=== PATIENT | female | born 1995 | race Caucasian/White ===

== ENCOUNTER 2020-10-01 16:29 | Emergency (ER) | payer OTHER ==
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
== END 2020-10-01 18:47 | disposition home or self-care (01) ==
LOC: ER 16:29
DX: M54.2 Cervicalgia (principal); F17.210 Nicotine dependence, cigarettes, uncomplicated; V49.49XA Driver injured in collision with other motor vehicles in traffic accident, initial encounter
CPT/HCPCS: 70450; 72125; 99284

== ENCOUNTER 2021-12-22 09:00 | Emergency (ER) | payer SELFPAY ==
[2021-12-22] MEDS ORDERED: IBUPROFEN 400 MG TAB ONE (09:23)
[2021-12-22] MEDS ORDERED: LORAZEPAM 0.5 MG TABLET ONE (09:25)
--- NOTE | 2021-12-22 09:48 | RAD REPORT ---
EXAM DESCRIPTION: RAD - Chest Single View - 12/22/2021 9:43 am CLINICAL HISTORY: CONGESTION COMPARISON: None TECHNIQUE: AP portable chest image was obtained 12/22/2021 9:43 am . FINDINGS: Lungs are clear. Heart and vasculature are normal. No measurable pleural effusion and no p neumothorax. No acute bony abnormality seen. No acute aortic findings suspected. IMPRESSION: No acute cardiopulmonary process.
--- NOTE | 2021-12-22 12:32 | EDPHYS ---
Physician Documentation [facility] Name: Sandi Quiñones Age: 26 yrs Sex: Female : 1995 Arrival Date: 12/22/2021 Time: 09:01 Bed 14 Private MD: ED Physician Jessa Albert HPI: 12/22 09:16 This 26 yrs old Female presents to ER via Unassigned with complaints of Numbness Of ma2 Arm, Chest Pain, Lightheaded. 09:16 Associated signs and symptoms: Pertinent negatives: fever, pain, tingling. 26-year-old ma2 female with chest pain worse with breathing, constant unchanged. Never had heart issues before,. 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 - Social history:: Smoking status: Patient reports the use of cigarette tobacco products, denies chronic smoking, but will smoke occasionally. - Family history:: not pertinent. ROS: 09:16 Constitutional: Negative for fever, chills, and weight loss. ma2 09:16 All other systems are negative. Exam: 09:16 Constitutional: This is a well developed, well nourished patient who is awake, alert, ma2 and in no acute distress. Head/Face: Normocephalic, atraumatic. Eyes: Pupils equal round and reactive to light, extra-ocular motions intact. Lids and lashes normal. Conjunctiva and sclera are non-icteric and not injected. Cornea within normal limits. Periorbital areas with no swelling, redness, or edema. ENT: Nares patent. No nasal discharge, no septal abnormalities noted. Tympanic membranes are normal and external auditory canals are clear. Oropharynx with no redness, swelling, or masses, exudates, or evidence of obstruction, uvula midline. Mucous membranes moist. Neck: Trachea midline, no thyromegaly or masses palpated, and no cervical lymphadenopathy. Supple, full range of motion without nuchal rigidity, or vertebral point tenderness. No Meningismus. Chest/axilla: Normal chest wall appearance and motion. Nontender with no deformity. No lesions are appreciated. Cardiovascular: Regular rate and rhythm with a normal S1 and S2. No gallops, murmurs, or rubs. Normal PMI, no JVD. No pulse deficits. Respiratory: Lungs have equal breath sounds bilaterally, clear to auscultation and percussion. No rales, rhonchi or wheezes noted. No increased work of breathing, no retractions or nasal flaring. Abdomen/GI: Soft, non-tender, with normal bowel sounds. No distension or tympany. No guarding or rebound. No evidence of tenderness throughout. Back: No spinal tenderness. No costovertebral tenderness. Full range of motion. Skin: Warm, dry with normal turgor. Normal color with no rashes, no lesions, and no evidence of cellulitis. MS/ Extremity: Pulses equal, no cyanosis. Neurovascular intact. Full, normal range of motion. Neuro: Awake and alert, GCS 15, oriented to person, place, time, and situation. Cranial nerves II-XII grossly intact. Motor strength 5/5 in all extremities. Sensory grossly intact. Cerebellar exam normal. Normal gait. Vital Signs: 09:18 BP 114 / 76; Pulse 50; Resp 17; Temp 98.2; Pulse Ox 99% ; Weight 92.99 kg; Height 5 ft. ap3 4 in. (162.56 cm); 09:18 Body Mass Index 35.19 (92.99 kg, 162.56 cm) ap3 MDM: 09:04 Patient medically screened. [facility] 09:16 Differential diagnosis: 26-year-old healthy with pleuritic chest pain constant for 2 ma2 days, patient has anxiety, severely anxious on exam, vital signs within normal limits including SPO2 of 100, lung sounds great, no signs of DVT on exam, chest pain improved with pain medication and Ativan, EKG unremarkable. 12:29 Data reviewed: vital signs, nurses notes. Counseling: I had a detailed discussion with ma the patient and/or guardian regarding: the historical points, exam findings, and any diagnostic results supporting the discharge/admit diagnosis, the presence of at least one elevated blood pressure reading (>120/80) during this emergency department visit, the need for outpatient follow up. Response to treatment: the patient's symptoms have resolved after treatment. 12/22 09:19 Order name: Chest Single View XRAY ma2 12/22 11:36 Order name: EKG Electrocardiogram; Complete Time: 12:24 EDWY 12/22 09:05 Order name: EKG - Nurse/Tech; Complete Time: 09:25 ma2 Administered Medications: 09:24 Drug: Motrin (ibuprofen) 800 mg Route: PO; cb5 09:25 Drug: Ativan (LORazepam) 2 mg Route: PO; cb5 Disposition Summary: 12/22/21 12:31 Discharge Ordered Location: Home ma2 Condition: Stable ma2 Diagnosis - Chest pain, unspecified ma2 Followup: ma2 - With: Private Physician - When: Tomorrow - Reason: Wound Recheck, If symptoms return Discharge Instructions: - Discharge Summary Sheet ma2 - Nonspecific Chest Pain, Adult, [id number] ga2 Forms: - Medication Reconciliation Form ma2 - School release form bd - Work release form bd - Thank You Letter ma2 - Antibiotic Education ma2 - Prescription Opioid Use ma2 Prescriptions: - ketorolac 10 mg Oral tablet - take 1 tablet by ORAL route every 4 hours not to exceed 40mg in 24hrs for up to ma2 5 days total use; 20 tablet; Refills: 0, Product Selection Permitted Signatures: Dispatcher [employer] [facility] Jessa Albert MD MD ma2 Rina Santiago RN RN ap3 Machelle Galvan RN RN cb5
--- NOTE | 2021-12-22 12:32 | ER ---
Nurse's Notes [facility] Name: Sandi Quiñones Age: 26 yrs Sex: Female : 1995 Arrival Date: 12/22/2021 Time: 09:01 Bed 14 Private MD: Diagnosis: Chest pain, unspecified Presentation: 12/22 09:18 Chief complaint: Patient states: she started having sharp chest pain approx one hour ap3 prior to her arrival to the ED. Patient states she has never had this feeling before. Coronavirus screen: At this time, the client does not indicate any symptoms associated with coronavirus-19. Ebola Screen: No symptoms or risks identified at this time. Initial Sepsis Screen: Does the patient meet any 2 criteria? No. Patient's initial sepsis screen is negative. Does the patient have a suspected source of infection? No. Patient's initial sepsis screen is negative. Risk Assessment: Do you want to hurt yourself or someone else? Patient reports no desire to harm self or others. Onset of symptoms was December 22, 2021. 09:18 Method Of Arrival: Wheelchair ap3 09:18 Acuity: DEMOND 3 ap3 Triage Assessment: 09:20 General: Appears uncomfortable, Behavior is calm, cooperative. Pain: Complains of pain ap3 in anterior aspect of left upper chest Pain began suddenly, 1 hour ago. Neuro: Level of Consciousness is awake, alert, obeys commands, Oriented to person, place, time, situation, Speech is normal, Facial symmetry appears normal. Cardiovascular: Reports chest pain, Patient's skin is warm and dry. Respiratory: Airway is patent Respiratory effort is even, unlabored. 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 - Social history:: Smoking status: Patient reports the use of cigarette tobacco products, denies chronic smoking, but will smoke occasionally. - Family history:: not pertinent. Screenin:20 Abuse screen: Denies threats or abuse. Nutritional screening: No deficits noted. ap3 Tuberculosis screening: No symptoms or risk factors identified. Assessment: 09:20 General: Appears comfortable, obese, well groomed, Behavior is cooperative, anxious. cb5 Pain: Complains of pain in chest Pain does not radiate. Neuro: No deficits noted. Level of Consciousness is awake, alert, obeys commands, Oriented to person, place, time, situation, Appropriate for age. Cardiovascular: No deficits noted. Respiratory: No deficits noted. GI: No deficits noted. : No deficits noted. EENT: No deficits noted. Derm: No deficits noted. Musculoskeletal: No deficits noted. 10:15 General: pt states the ativan helped her. cb5 10:15 Reassessment: Patient and/or family updated on plan of care and expected duration. Pain cb5 level reassessed. Patient states feeling better. 11:15 Reassessment: Patient and/or family updated on plan of care and expected duration. Pain cb5 level reassessed. 12:15 Reassessment: Patient and/or family updated on plan of care and expected duration. Pain cb5 level reassessed. Vital Signs: 09:18 BP 114 / 76; Pulse 50; Resp 17; Temp 98.2; Pulse Ox 99% ; Weight 92.99 kg; Height 5 ft. ap3 4 in. (162.56 cm); 09:18 Body Mass Index 35.19 (92.99 kg, 162.56 cm) ap3 ED Course: 09:01 Patient arrived in ED. am2 09:04 Jessa Albert MD is Attending Physician. ma2 09:10 Machelle Galvan, RN is Primary Nurse. cb5 09:19 Triage completed. ap3 09:20 EKG done, by ED staff, reviewed by Jessa Albert MD. ap3 09:20 Arm band placed on right wrist. ap3 09:21 Patient maintains SpO2 saturation greater than 95% on room air. ap3 09:21 Patient has correct armband on for positive identification. Bed in low position. Call ap3 light in reach. Side rails up X2. Adult w/ patient. lunchroom monitor on. Pulse ox on. NIBP on. Door closed. Noise minimized. 09:43 Chest Single View XRAY In Process Unspecified. EDMS Administered Medications: 09:24 Drug: Motrin (ibuprofen) 800 mg Route: PO; cb5 09:25 Drug: Ativan (LORazepam) 2 mg Route: PO; cb5 Outcome: 12:31 Discharge ordered by . sudha 13:12 Patient left the ED. cb5 Signatures: Dispatcher [employer] EDRina Acosta Mohammad, MD MD ma2 Rina Santiago, RN RN ap3 Machelle Galvan RN RN cb5
[2021-12-22 14:14] VITALS: BP 114/76; TEMP 98.2; O2SAT 99
--- NOTE | 2021-12-23 07:36 | EKG ---
Test Date: 2021-12-22 Test Time: 09:12:01 Assistant Hvac Mechanic: ALP MEASUREMENT RESULTS: Intervals: Rate: 43 MT: 160 QRSD: 88 QT: 454 QTc: 383 [place]: P: 34 MT: 160 QRS: 85 T: 71 INTERPRETIVE STATEMENTS: Marked sinus bradycardia Abnormal ECG Compared to ECG 12/22/2021 09:11:25 Sinus arrhythmia no longer present Electronically Signed On 12-23-21 07:35:51 CARDIAC TECH by Alexandre Quevedo
--- NOTE | 2021-12-23 07:36 | EKG ---
Test Date: 2021-12-22 Test Time: 09:10:56 Manager Drilling: ALP MEASUREMENT RESULTS: Intervals: Rate: 51 TN: 170 QRSD: 86 QT: 446 QTc: 411 [place]: P: 47 TN: 170 QRS: 85 T: 74 INTERPRETIVE STATEMENTS: Sinus bradycardia with premature supraventricular complexes Otherwise normal ECG No previous ECG available for comparison Electronically Signed On 12-23-21 07:35:53 SOFTWARE SPECIALIST by Alexandre Quevedo
--- NOTE | 2021-12-23 07:36 | EKG ---
Test Date: 2021-12-22 Test Time: 09:11:25 Business Director: ALP MEASUREMENT RESULTS: Intervals: Rate: 58 WA: 166 QRSD: 88 QT: 448 QTc: 439 [place]: P: 48 WA: 166 QRS: 86 T: 73 INTERPRETIVE STATEMENTS: Sinus bradycardia with sinus arrhythmia Otherwise normal ECG Compared to ECG 12/22/2021 09:10:56 Atrial premature complex(es) no longer present Electronically Signed On 12-23-21 07:35:52 RAT FARMER by Alexandre Quevedo
== END 2021-12-22 13:12 | disposition home or self-care (01) ==
LOC: ER 09:00
DX: R07.9 Chest pain, unspecified (principal); F17.210 Nicotine dependence, cigarettes, uncomplicated
CPT/HCPCS: 71045; 93005; 99285

== ENCOUNTER 2024-02-20 08:18 | Emergency (ER) | payer SELFPAY ==
[2024-02-20] MEDS ORDERED: ONDANSETRON 4 MG/2 ML VIAL ONE (08:56)
[2024-02-20] MEDS ORDERED: KETOROLAC 30 MG/ML INJ ONE (08:56)
[2024-02-20 09:02] LABS: Specific Gravity 1.023 (1.005-1.030)
[2024-02-20 09:05] LABS: Specific Gravity 1.023 (1.005-1.030); Sqamous Epithelial 20-50 /HPF (None Seen); Urine Bacteria None Seen /HPF (<20); Urine Bilirubin NEGATIVE (Negative); Urine Blood Negative (Negative); Urine Clarity Extremely Turbid (Clear); Urine Color Yellow (Yellow); Urine Culture Reflex Order NOT NEEDED; Urine Glucose NEGATIVE (Negative); Urine Ketones 2+ (Negative); Urine Microscopic Reflex YN ORDER UMIC; Urine Mucus 4+ /HPF (None Seen); Urine Nitrite NEGATIVE (Negative); Urine Protein TRACE (Negative); Urine Urobilinogen Normal (Normal); Urine WBC <5 /HPF (<5); Urine Yeast (Budding) Trace /HPF (None Seen); Urine pH 5.5 (5.0-7.0)
[2024-02-20 09:14] LABS: Absolute Eosinophils 0.1 K/uL (0-0.5); Absolute Lymphocytes (CBC) 1.6 K/uL (0.7-4.9); Absolute Monocytes 0.8 K/uL (0.1-1.3); Absolute Neutrophil 5.6 K/uL (1.8-8.0); Basophils % 0.5 % (0-1.3); Eosinophils % 1.1 % (0-4.4); Hematocrit 41.8 % (36.0-45.0); Hemoglobin 13.4 g/dL (12.0-15.0); Lymphocytes % 20.2 % (15.3-44.8); MCH 28.9 pg (27.0-35.0); MCHC 32.1 g/dL (32.0-36.0); MCV 90.1 fL (80-100); MPV 8.4 fL (7.6-11.3); Monocytes % 9.6 % (3.3-12.3); Neutrophils % 68.6 % (41.7-73.7); Platelets 291 thou/uL (152-406); RBC Red Blood Cell Count 4.64 M/uL (3.86-4.86); Red Cell Distribution Width 13.8 % (12.1-15.2)
[2024-02-20 09:30] LABS: Albumin 3.5 g/dL (3.4-5.0); Albumin/Globulin Ratio 1.1 (1.1-1.8); Anion Gap 7.3 mEq/L (5.0-15.0); Bilirubin Total 0.4 mg/dL (0.2-1.0); Globulin 3.2 g/dL (2.3-3.5); Potassium 3.3 mEq/L (3.5-5.1); Protein, Total 6.7 g/dL (6.4-8.2)
--- NOTE | 2024-02-20 09:38 | RAD REPORT ---
EXAM DESCRIPTION: CT - Abdomen Pelvis Wo Contrast - 02/20/2024 9:21 am CLINICAL HISTORY: ABD PAIN COMPARISON: No comparisons TECHNIQUE: Thin cut axial CT imaging of the abdomen and pelvis was performed without IV contrast. Mu ltiplanar reformats were generated and reviewed. All CT scans are performed using dose optimization technique as appropriate and may include automated exposure control or mA/KV adjustment according to patient size. FINDINGS: No suspicious findings in the lung bases. The liver, spleen, adrenal glands, and pancreas show no suspicious findings. Gallbladder and biliary tree are also without suspicious finding. Symmetric renal contour, without suspicious parenchymal findings within limits of noncontrast techniq ue. No evidence of hydroureteronephrosis. Bilateral small nonobstructing calculi, largest measuring 5 mm at the left superior pole. No dilated bowel loops or bowel wall thickening. No free air, free fluid or inflammatory stranding. N o hernia, mass or bulky lymphadenopathy. The urinary bladder is decompressed, limiting evaluation. No suspicious bony findings. IMPRESSION: Bilateral nonobstructing renal calculi, up to 5 mm. No hydroureteronephrosis. No other a cute findings.
--- NOTE | 2024-02-20 10:47 | RAD REPORT ---
EXAM DESCRIPTION: RAD - Chest Pa And Lat (2 Views) - 02/20/2024 9:32 am CLINICAL HISTORY: CHEST PAIN COMPARISON: Chest Single View dated 12/22/2021 TECHNIQUE: PA and lateral views of the chest were obtained. FINDINGS: The lungs are clear. Heart size is normal and central vasculature is within normal limits. No pleural effusion or pneumothorax seen. No acute bony finding noted. IMPRESSION: No acute cardiopulmonary process.
--- NOTE | 2024-02-20 11:32 | EDPHYS ---
Physician Documentation [facility] Name: Sandi Quiñones Age: 28 yrs Sex: Female : 1995 Arrival Date: 02/20/2024 Time: 08:18 Bed 17 Private MD: ED Physician Shelton Castro HPI: 02/19 09:16 This 28 yrs old Female presents to ER via Ambulatory with complaints of Low Back Pain, ms3 Chest Pain. 09:16 28-year-old female with past medical history of kidney stones presents to the emergency ms3 department for chest pain that began yesterday. Patient states at 2 AM she developed lower back pain. Patient states her pain in her chest and back is rated a 7/10. Patient denies fevers or chills. Patient endorses shortness of breath, nausea, vomiting, chills. 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 Flu vaccine is not up to date. - Infectious Disease History:: Denies. - Social history:: Smoking status: Patient reports the use of cigarette tobacco products, denies chronic smoking, but will smoke occasionally, Patient uses alcohol, occasionally. ROS: 09:16 Constitutional: Negative for fever, and chills. Neck: Negative for injury, pain, and ms3 swelling, Cardiovascular: Negative for chest pain, and palpitations. Respiratory: Negative for shortness of breath, cough, wheezing, and pleuritic chest pain, Abdomen/GI: Negative for abdominal pain, nausea, vomiting, diarrhea, and constipation, 09:16 Back: Positive for Back pain, Exam: 09:16 Constitutional: This is a well developed, well nourished patient who is awake, alert, ms3 and in no acute distress. Head/Face: Normocephalic, atraumatic. Neck: Trachea midline, no cervical lymphadenopathy. Supple, full range of motion without nuchal rigidity, or vertebral point tenderness. No Meningismus. Chest/axilla: Normal chest wall appearance and motion. Nontender with no deformity. Cardiovascular: Regular rate and rhythm with a normal S1 and S2. No gallops, murmurs, or rubs. Normal PMI, no JVD. No pulse deficits. Respiratory: Lungs have equal breath sounds bilaterally, clear to auscultation and percussion. No rales, rhonchi or wheezes noted. No increased work of breathing, no retractions or nasal flaring. Abdomen/GI: Soft, non-tender, with normal bowel sounds. No distension or tympany. No guarding or rebound. No evidence of tenderness throughout. Skin: Warm, dry with normal turgor. Normal color with no rashes, no lesions, and no evidence of cellulitis. 09:16 ECG was reviewed by the Attending Physician. Vital Signs: 08:28 Pulse 82; Resp 18; Pulse Ox 100% ; Weight 89.81 kg; Height 5 ft. 5 in. ; Pain 7/10; ap3 08:28 BP 139 / 86; ap3 09:14 BP 134 / 56; Pulse 70; Resp 16; Pulse Ox 100% ; ko1 11:05 BP 108 / 58; Pulse 74; Resp 18; Pulse Ox 100% on R/A; mb9 08:28 Body Mass Index 32.95 (89.81 kg, 165.1 cm) ap3 08:28 Pain Scale: Adult ap3 MDM: 08:47 Patient medically screened. ms3 14:38 Differential diagnosis: strain, sciatica, UTI, Nephrolithiasis. Data reviewed: vital ms3 signs, nurses notes, lab test result(s), radiologic studies, and as a result, I will discharge patient. I considered the following discharge prescriptions or medication management in the emergency department Medications were administered in the Emergency Department. See MAR. Care significantly affected by the following chronic conditions: Kidney stones. Counseling: I had a detailed discussion with the patient and/or guardian regarding the historical points, exam findings, and any diagnostic results supporting the discharge/admit diagnosis, lab results, radiology results, the need for outpatient follow up, to return to the emergency department if symptoms worsen or persist or if there are any questions or concerns that arise at home. Response to treatment: the patient's symptoms have markedly improved after treatment, and as a result, I will discharge patient. Special discussion: I discussed with the patient/guardian in detail that at this point there is no indication for admission to the hospital. It is understood, however, that if the symptoms persist or worsen the patient needs to return immediately for re-evaluation. ED course: Discussed labs and imaging with patient. Patient to follow-up with primary care physician in 2 to 3 days. Patient understands and agrees with plan. All questions were answered. Return precautions discussed include worsening symptoms, or any other concerns. On reevaluation patient symptoms improved, patient is alert and oriented x 4, no apparent distress, nontoxic-appearing, ambulatory in the emergency department. 02/19 08:38 Order name: CBC with Diff; Complete Time: 10:02 ms3 02/19 08:38 Order name: CMP; Complete Time: 10:02 ms3 02/19 08:38 Order name: Test, Urine; Complete Time: 10:02 ms3 02/19 08:38 Order name: Urinalysis w/ reflexes; Complete Time: 10:02 ms3 02/19 08:38 Order name: CT Abd/Pelvis - Without Contrast; Complete Time: 10:02 ms3 02/19 08:38 Order name: Chest Pa And Lat (2 Views) XRAY; Complete Time: 11:15 ms3 02/19 08:30 Order name: EKG; Complete Time: 08:30 hb 02/19 08:30 Order name: EKG - Nurse/Tech; Complete Time: 08:30 hb 02/19 08:38 Order name: IV Saline Lock; Complete Time: 09:08 ms3 02/19 08:38 Order name: Labs collected and sent; Complete Time: 09:08 ms3 EC:16 Rate is 66 beats/min. Rhythm is regular. QRS [place] is Normal. [place] interval is normal. QRS ms3 interval is normal. QT interval is normal. Clinical impression: Normal ECG. Interpreted by me. Reviewed by me. Administered Medications: 09:08 Drug: TORadol - Ketorolac IVP 15 mg IVP once Route: IVP; Site: left antecubital; ko1 09:23 Follow up: Response: No adverse reaction ko1 09:08 Drug: Ondansetron IVP 4 mg IVP once; over 2 minutes Route: IVP; Site: left antecubital; ko1 09:23 Follow up: Response: No adverse reaction ko1 11:48 Drug: Potassium Chloride PO Liquid 40 mEq PO once Route: PO; mb9 Disposition Summary: 02/20/24 11:32 Discharge Ordered Notes: Location: Home ms3 Condition: Stable ms3 Diagnosis - Chest pain, unspecified ms3 - Cough ms3 - Low back pain ms3 - Hypokalemia ms3 Discharge Instructions: - Acute Back Pain, Adult ms3 - Nonspecific Chest Pain, Adult ms3 - Cough, Adult ms3 - Hypokalemia ms3 - Discharge Summary Sheet mb9 Forms: - Medication Reconciliation Form ms3 - Antibiotic Education ms3 - Prescription Opioid Use ms3 - Patient Portal Instructions ms3 - Leadership Thank You Letter ms3 - Work release form mb9 Prescriptions: - Tessalon Perles 100 mg Oral Capsule - take 1 capsule ORAL route every 8 hours As needed; 15 capsule; Refills: 0, ms3 Product Selection Permitted Signatures: Dispatcher [employer] EDLindsey Chong RN RN Rina Santiago RN RN ap3 Shelton Castro DO DO ms3 Jojo Bermeo RN RN ko1 Nolberto, Shyla Vyas RN RN mb9 Corrections: (The following items were deleted from the chart) 08:39 08:39 Abdomen Pelvis Wo Con+CT.RAD.BRZ ordered. EDMS EDMS 08:39 08:39 Chest Pa And Lat (2 Views)+RAD.RAD.BRZ ordered. EDMS EDMS
--- NOTE | 2024-02-20 11:32 | ER ---
Nurse's Notes [facility] Name: Sandi Quiñones Age: 28 yrs Sex: Female : 1995 Arrival Date: 02/20/2024 Time: 08:18 Bed 17 Private MD: Diagnosis: Chest pain, unspecified;Cough;Low back pain;Hypokalemia Presentation: 02/19 08:23 Chief complaint: Patient states: she feels like she has a "pinching in her chest" ap3 causing a shortness of breath since yesterday and a low back pain in her kidney since approx 0200 this morning. Patient reports nausea with the pain, and is currently stating her pain to be a 7/10 on the pain scale. Coronavirus screen: At this time, the client does not indicate any symptoms associated with coronavirus-19. Ebola Screen: No symptoms or risks identified at this time. Risk Assessment: Do you want to hurt yourself or someone else? Patient reports no desire to harm self or others. Onset of symptoms was February 19, 2024. 08:23 Method Of Arrival: Ambulatory ap3 08:30 Initial Sepsis Screen: Does the patient meet any 2 criteria? No. Patient's initial ap3 sepsis screen is negative. Does the patient have a suspected source of infection? No. Patient's initial sepsis screen is negative. 08:30 Acuity: DEMOND 2 ap3 Triage Assessment: 08:26 General: Appears in no apparent distress. Behavior is calm, cooperative, appropriate ap3 for age. Pain: Complains of pain in right low back and chest Pain currently is 7 out of 10 on a pain scale. Neuro: Level of Consciousness is awake, alert, obeys commands, Oriented to person, place, time, situation. Cardiovascular: Reports chest pain. Respiratory: Airway is patent Respiratory effort is even, unlabored, Respiratory pattern is regular, symmetrical. 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 Flu vaccine is not up to date. - Infectious Disease History:: Denies. - Social history:: Smoking status: Patient reports the use of cigarette tobacco products, denies chronic smoking, but will smoke occasionally, Patient uses alcohol, occasionally. Screenin:26 Abuse screen: Denies threats or abuse. Nutritional screening: No deficits noted. ap3 Tuberculosis screening: No symptoms or risk factors identified. 09:12 [facility] ED Fall Risk Assessment (Adult) History of falling in the last 3 months, ko1 including since admission No falls in past 3 months (0 pts) Confusion or Disorientation No (0 pts) Intoxicated or Sedated No (0 pts) Impaired Gait No (0 pts) Mobility Assist Device Used No (0 pt) Altered Elimination No (0 pt) Score/Fall Risk Level 0 - 2 = Low Risk Oriented to surroundings, Maintained a safe environment, Educated pt \\T\\ family on fall prevention, incl call for assistance when getting out of bed, Assessed \\T\\ reinforced patient's understanding of fall precautions, Provided non-skid footwear, Hourly rounding (assess needs \\T\\ fall precautionary measures) done, Used ambulatory aids as needed (educated on \\T\\ assisted with), Used gait belt as appropriate. Assessment: 08:27 Pain: Pain does not radiate. Pain began gradually, 1 day ago. ap3 10:35 Reassessment: No changes from previously documented assessment. Patient and/or family mb9 updated on plan of care and expected duration. Pain level reassessed. Patient is alert, oriented x 3, equal unlabored respirations, skin warm/dry/pink. 11:51 Reassessment: Patient appears in no apparent distress at this time. No changes from mb9 previously documented assessment. Patient and/or family updated on plan of care and expected duration. Pain level reassessed. Patient is alert, oriented x 3, equal unlabored respirations, skin warm/dry/pink. Vital Signs: 08:28 Pulse 82; Resp 18; Pulse Ox 100% ; Weight 89.81 kg; Height 5 ft. 5 in. ; Pain 7/10; ap3 08:28 BP 139 / 86; ap3 09:14 BP 134 / 56; Pulse 70; Resp 16; Pulse Ox 100% ; ko1 11:05 BP 108 / 58; Pulse 74; Resp 18; Pulse Ox 100% on R/A; mb9 08:28 Body Mass Index 32.95 (89.81 kg, 165.1 cm) ap3 08:28 Pain Scale: Adult ap3 ED Course: 08:20 Patient arrived in ED. im 08:26 Arm band placed on left wrist. ap3 08:26 O2 via room air. ap3 08:28 Shelton Castro DO is Attending Physician. ms3 08:30 EKG done, by ED staff, reviewed by Shelton Castro DO. hb 08:31 Triage completed. ap3 08:45 Assisted to bathroom. ko1 08:45 No provider procedures requiring assistance completed. Initial lab(s) drawn, by fl, ko1 sent to lab. Urine collected: clean catch specimen, darci colored. Inserted saline lock: 22 gauge in left antecubital area, using aseptic technique. Blood collected. 08:47 Jojo Bermeo, EMILY is Primary Nurse. ko1 08:50 Urinalysis w/ reflexes Sent. ko1 08:50 Test, Urine Sent. ko1 09:08 CBC with Diff Sent. ko1 09:08 CMP Sent. ko1 09:12 Patient has correct armband on for positive identification. Bed in low position. Call ko1 light in reach. Side rails up X 1. Provided Education on: labs/meds. Pulse ox on. NIBP on. Door closed. Noise minimized. Lights dimmed. Warm blanket given. 09:23 CT Abd/Pelvis - Without Contrast In Process Unspecified. EDMS 09:34 Chest Pa And Lat (2 Views) XRAY In Process Unspecified. EDMS 10:04 Report given to Stacie Todd RN. ko1 11:51 IV discontinued, intact, bleeding controlled, No redness/swelling at site. Pressure mb9 dressing applied. Administered Medications: 09:08 Drug: TORadol - Ketorolac IVP 15 mg IVP once Route: IVP; Site: left antecubital; ko1 09:23 Follow up: Response: No adverse reaction ko1 09:08 Drug: Ondansetron IVP 4 mg IVP once; over 2 minutes Route: IVP; Site: left antecubital; ko1 09:23 Follow up: Response: No adverse reaction ko1 11:48 Drug: Potassium Chloride PO Liquid 40 mEq PO once Route: PO; mb9 Medication: 08:27 VIS not applicable for this client. ap3 Outcome: 11:32 Discharge ordered by . ms3 11:51 Discharged to home ambulatory, with family, mb9 11:51 Condition: stable 11:51 Discharge instructions given to patient, Instructed on discharge instructions, follow up and referral plans. Demonstrated understanding of instructions, follow-up care, medications, Prescriptions given X 1, 11:52 Patient left the ED. mb9 Signatures: Dispatcher [employer] EDMS Lindsey Lemus, RN RN Rina Bhat RN RN ap3 Shelton Castro DO DO ms3 Jojo Bermeo RN RN ko1 Shyla Arvizu RN RN mb9 Zeinab Escalera Corrections: (The following items were deleted from the chart) 11:07 11:05 BP 106 / 57; Pulse 74bpm; Resp 18bpm; Pulse Ox 100% RA; mb9 mb9
[2024-02-20] MEDS ORDERED: POTASSIUM CL SA 10 MEQ TAB PO ONE (11:47)
[2024-02-20 12:22] VITALS: BP 108/58; O2SAT 100
== END 2024-02-20 11:52 | disposition home or self-care (01) ==
LOC: ER 08:18
DX: R07.9 Chest pain, unspecified (principal); R05.9 Cough, unspecified; M54.50 Low back pain, unspecified; E87.6 Hypokalemia
CPT/HCPCS: 36415; 71046; 74176; 80053; 81001; 81025; 85025; 93005; J2405

== ENCOUNTER 2024-08-11 23:07 | Emergency (ER) | payer BC, SELFPAY ==
[2024-08-11] MEDS ORDERED: PROMETHAZINE INJ 25 MG/ML AMP ONE (23:53)
[2024-08-11] MEDS ORDERED: MORPHINE 4 MG/ML SYR ONE (23:53)
[2024-08-11] MEDS ORDERED: NA CHLORIDE 0.9% 1,000 ML ONE (23:54)
[2024-08-11 23:59] LABS: Absolute Basophils 0.1 K/uL (0-0.5); Absolute Eosinophils 0.1 K/uL (0-0.5); Absolute Lymphocytes (CBC) 3.6 K/uL (0.7-4.9); Absolute Monocytes 0.9 K/uL (0.1-1.3); Absolute Neutrophil 6.2 K/uL (1.8-8.0); Basophils % 0.5 % (0-1.3); Eosinophils % 1.3 % (0-4.4); Hematocrit 38.5 % (36.0-45.0); Hemoglobin 12.8 g/dL (12.0-15.0); Lymphocytes % 33.2 % (15.3-44.8); MCH 29.9 pg (27.0-35.0); MCHC 33.2 g/dL (32.0-36.0); Monocytes % 8.2 % (3.3-12.3); Neutrophils % 56.8 % (41.7-73.7); Platelets 278 thou/uL (152-406); RBC Red Blood Cell Count 4.28 M/uL (3.86-4.86); Red Cell Distribution Width 13.7 % (12.1-15.2)
[2024-08-12 00:21] LABS: Albumin 3.6 g/dL (3.4-5.0); Albumin/Globulin Ratio 1.2 (1.1-1.8); Anion Gap 5.2 mEq/L (5.0-15.0); Bilirubin Total 0.2 mg/dL (0.2-1.0); Globulin 2.9 g/dL (2.3-3.5); Potassium 3.2 mEq/L (3.5-5.1); Protein, Total 6.5 g/dL (6.4-8.2)
[2024-08-12 01:09] LABS: Specific Gravity 1.029 (1.005-1.030)
[2024-08-12 01:12] LABS: Calcium Oxalate Crystals- Ur Few /HPF (None Seen); Specific Gravity 1.029 (1.005-1.030); Urine Bacteria None Seen /HPF (<20); Urine Bilirubin NEGATIVE (Negative); Urine Blood Negative (Negative); Urine Clarity Turbid (Clear); Urine Color Yellow (Yellow); Urine Culture Reflex Order NOT NEEDED; Urine Glucose NEGATIVE (Negative); Urine Ketones NEGATIVE (Negative); Urine Microscopic Reflex YN ORDER UMIC; Urine Mucus 4+ /HPF (None Seen); Urine Nitrite NEGATIVE (Negative); Urine Protein TRACE (Negative); Urine RBC <5 /HPF (None Seen); Urine Urobilinogen 1+ (Normal); Urine WBC <5 /HPF (<5)
--- NOTE | 2024-08-12 02:08 | RAD REPORT ---
CLINICAL HISTORY: Flank pain. COMPARISON: CT Abdomen Pelvis 02/20/2024. TECHNIQUE: CT ABDOMEN PELVIS WITH IV CONTRAST on 08/11/2024 11:34 PM CDT This exam was performed according to our departmental dose-optimization program, which includes autom ated exposure control, adjustment of the mA and/or kV according to patient size and/or use of iterative reconstruction technique. FINDINGS: Lower lungs are clear. Abdomen: The liver is normal in appearance. There is no biliary dilatation. Gallbladder is normal in appearance. The pancreas and spleen are normal in appearance. Adrenal glands are normal. There are multiple scattered bilateral renal calculi measuring 1 to 2 mm. There is no hydronephrosis. Abdominal aorta is normal in course and caliber without aneurysm. There is no free air. There is no r etroperitoneal adenopathy. Pelvis: There is no bowel obstruction. Urinary bladder is unremarkable. There is no free fluid. Uteru s is normal in size. Left ovarian cyst measures 4.9 cm. Appendix is normal. Skeleton: There are no acute osseous findings. No suspicious bony lesions. IMPRESSION: Bilateral nephrolithiasis without hydronephrosis. Left ovarian simple-appearing cyst measuring 4.9 cm. No follow-up imaging is recommended. Reference: JACR 2019;17(2):[id number] Electronically signed by: Jackson Elizabeth MD 08/12/2024 02:04 AM CDT Due to temporary technical issues with the [email or web address] reporting system, reports are being errol d by the in-house radiologist without review as a courtesy to ensure prompt reporting the interpreting radiologist is fully responsible for the content of the report. Transcribed Date/Time: 08/12/2024 2:08 AM
--- NOTE | 2024-08-12 02:21 | EDPHYS ---
Physician Documentation [facility] Name: Sandi Quiñones Age: 28 yrs Sex: Female : 1995 Arrival Date: 08/11/2024 Time: 23:07 Bed 17 Private MD: CHAY Physician Humphrey Kim HPI: 08/12 00:08 This 28 yrs old Female presents to ER via Wheelchair with complaints of Flank pain. sb4 00:08 The patient complains of pain in the left low back. The pain radiates to the left lower sb4 quadrant. Onset: The symptoms/episode began/occurred 2 hour(s) ago. Modifying factors: The symptoms are alleviated by nothing. the symptoms are aggravated by nothing. Associated signs and symptoms: Pertinent positives: pain radiating to left lower extremity, Pertinent negatives: dysuria, fever, urinary frequency. Severity of pain: in the emergency department the pain is a 9 / 10. The patient has experienced a previous episode, approximately 10 months ago, . Patient reports left flank pain that radiates on her leg that began just prior to arrival. She states that she had similar symptoms last year and had to be transferred to [facility] and was diagnosed with several kidney stones and kidney abscesses. States that she has not been able to follow-up with nephrology since. Denies any hematuria or burning with urination, she does report some hesitancy. 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 - Infectious Disease History:: Denies. - Social history:: Smoking status: Patient reports the use of cigarette tobacco products, denies chronic smoking, but will smoke occasionally. ROS: 08/12 00:08 Constitutional: Negative for fever, chills, and weight loss, sb4 Back: Positive for flank pain, on the left, All other systems are negative, Exam: 00:08 Head/Face: Normocephalic, atraumatic. Eyes: Extra-ocular motions intact. Periorbital sb4 areas with no swelling, redness, or edema. ENT: Mucous membranes moist. Abdomen/GI: Soft, non-tender, no distension. Skin: Warm, dry with normal turgor. Normal color with no rashes, no lesions, and no evidence of cellulitis. 00:08 Constitutional: The patient appears alert, awake, in obvious pain, 00:08 Back: CVA tenderness, that is moderate, is noted on the left, Vital Signs: 08/11 23:21 BP 115 / 77; Pulse 72; Resp 18; Temp 97.8; Pulse Ox 98% on R/A; Weight 89 kg; Height 5 cm10 ft. 5 in. ; Pain 9/10; 23:34 BP 115 / 77; Pulse 72; Resp 18; Temp 97.8(O); Pain /10; rg5 08/12 00:15 BP 108 / 61; Pulse 54; Resp 17; Pulse Ox 97% on R/A; rg5 01:46 BP 129 / 98; Pulse 64; Resp 17; Pulse Ox 100% ; rg5 02:21 BP 111 / 65; Pulse 64; Resp 18; Temp 98; Pulse Ox 97% on R/A; kj2 02:38 BP 113 / 66; Pulse 62; Resp 18; Temp 98; Pulse Ox 100% on R/A; kj2 08/11 23:21 Body Mass Index 32.65 (89.00 kg, 165.1 cm) cm10 08/11 23:21 Pain Scale: Adult cm10 23:34 Pain Scale: Adult rg5 [place] Coma Score: 08/11 23:36 Eye Response: spontaneous(4). Motor Response: obeys commands(6). Verbal Response: rg5 oriented(5). Total: 15. MDM: 23:14 Patient medically screened. sb4 08/12 02:18 Differential diagnosis: arthritis, strain, sciatica, Herniated disc UTI. Data reviewed: [facility] vital signs, nurses notes, lab test result(s), EKG, radiologic studies, CT scan. Consideration of Admission/Observation Escalation of care including admission/observation considered. I considered the following discharge prescriptions or medication management in the emergency department Medications were administered in the Emergency Department. See MAR. Independent interpretation of the following test(s) in the Emergency Department CT Scan: My interpretation is ct abd / pel . Test considered but Not performed: Ultrasound no abd usg. Care significantly affected by the following chronic conditions: depression, kidney issues. 17:03 Counseling: I had a detailed discussion with the patient and/or guardian regarding the sb4 historical points, exam findings, and any diagnostic results supporting the discharge/admit diagnosis, lab results, radiology results, to return to the emergency department if symptoms worsen or persist or if there are any questions or concerns that arise at home. 08/11 23:34 Order name: CBC with Diff; Complete Time: 00:03 sb4 08/11 23:34 Order name: CMP; Complete Time: 00:25 sb4 08/11 23:34 Order name: Test, Urine; Complete Time: 01:56 sb4 08/11 23:34 Order name: Urinalysis w/ reflexes; Complete Time: 01:56 sb4 08/11 23:34 Order name: CT Abd/Pelvis - IV Contrast Only; Complete Time: 17:02 sb4 08/11 23:34 Order name: IV Saline Lock; Complete Time: 00:01 sb4 08/11 23:34 Order name: Labs collected and sent; Complete Time: 00:01 sb4 Administered Medications: 08/11 23:50 CANCELLED (Physician Discretion): ondansetron 4 mg IVP once; over 2 minutes sb4 08/12 00:00 Drug: morphine IVP or IV 4 mg IVP once over 4 mins Route: IVP; Infused Over: 4 mins; rg5 Site: right antecubital; 01:00 Follow up: Response: No adverse reaction; Pain is decreased rg5 00:00 Drug: NS 0.9% IV 1000 ml IV at 1 bolus Per protocol; to be given as a bolus over 60 rg5 minutes Route: IV; Rate: 1 bolus; Site: right antecubital; 02:08 Follow up: IV Status: Completed infusion; IV Intake: 1000ml rg5 00:01 Drug: Promethazine IVP 12.5 mg IVP once Route: IVP; Site: right antecubital; rg5 01:00 Follow up: Response: No adverse reaction rg5 02:29 Follow up: Response: No adverse reaction; Nausea is decreased kj2 Disposition: 02:18 Co-signature as Attending Physician, Humphrey Kim MD I agree with the assessment and josr plan of care. 17:03 Chart complete. sb4 Disposition Summary: 08/12/24 02:21 Discharge Ordered Notes: Location: Home josr Problem: new josr Symptoms: have improved josr Condition: Stable josr Diagnosis - Low back pain josr Followup: josr - With: Private Physician - When: 2 - 3 days - Reason: Recheck today's complaints, Re-evaluation by your physician Discharge Instructions: - Discharge Summary Sheet josr - Acute Back Pain, Adult josr - Musculoskeletal Pain josr Forms: - Medication Reconciliation Form josr - Antibiotic Education josr - Prescription Opioid Use josr - Patient Portal Instructions josr - Leadership Thank You Letter josr - Work release form af3 Prescriptions: - ondansetron 4 mg Oral Tablet,disintegrating - take 1 tablet ORAL route every 6-8 hours for 5 days as needed for nausea and josr vomiting; 20 tablet; Refills: 0, Product Selection Permitted - Ibuprofen 600 mg Oral tablet - take 1 tablet ORAL route every 6 hours As needed take with food; 20 tablet; josr Refills: 0, Product Selection Permitted Signatures: Dispatcher [employer] EDHumphrey Tinsley MD MD cha Brown, Sophia, PA-C PA-C sb4 Jennifer Lewis RN RN cm10 Lizandro Wheeler RN RN rg5 Mildred Stahl RN kj2 Corrections: (The following items were deleted from the chart) 08/11 23:50 23:34 Ondansetron IVP 4 mg IVP once; over 2 minutes ordered. sb4 sb4
--- NOTE | 2024-08-12 02:21 | ER ---
Nurse's Notes [facility] Name: Sandi Quiñones Age: 28 yrs Sex: Female : 1995 Arrival Date: 08/11/2024 Time: 23:07 Bed 17 Private MD: Diagnosis: Low back pain Presentation: 08/11 23:21 Chief complaint: Patient states: Low back pain that radiates down left leg onset a cm10 couple hours ago. Coronavirus screen: Client denies travel out of the [place] in the last 14 days. Ebola Screen: Patient denies travel to an Ebola-affected area in the 21 days before illness onset. No symptoms or risks identified at this time. Initial Sepsis Screen: Does the patient meet any 2 criteria? No. Patient's initial sepsis screen is negative. Does the patient have a suspected source of infection? No. Patient's initial sepsis screen is negative. Risk Assessment: Do you want to hurt yourself or someone else? Patient reports no desire to harm self or others. Onset of symptoms was August 11, 2024. 23:21 Method Of Arrival: Wheelchair cm10 23:21 Acuity: DEMOND 4 cm10 Triage Assessment: 23:22 General: Appears in no apparent distress. uncomfortable, Behavior is calm, cooperative. cm10 Neuro: No deficits noted. Level of Consciousness is awake, alert, obeys commands, Oriented to person, place, time, situation, Appropriate for age. Respiratory: No deficits noted. Airway is patent Respiratory effort is even, unlabored, Respiratory pattern is regular, symmetrical. 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 - Infectious Disease History:: Denies. - Social history:: Smoking status: Patient reports the use of cigarette tobacco products, denies chronic smoking, but will smoke occasionally. Screenin:36 [facility] ED Fall Risk Assessment (Adult) History of falling in the last 3 months, rg5 including since admission No falls in past 3 months (0 pts) Confusion or Disorientation No (0 pts) Intoxicated or Sedated No (0 pts) Impaired Gait No (0 pts) Mobility Assist Device Used No (0 pt) Altered Elimination No (0 pt) Score/Fall Risk Level 0 - 2 = Low Risk Oriented to surroundings, Maintained a safe environment, Hourly rounding (assess needs \T\ fall precautionary measures) done. Abuse screen: Denies threats or abuse. Nutritional screening: No deficits noted. Tuberculosis screening: No symptoms or risk factors identified. Assessment: 23:36 General: Appears in no apparent distress. Behavior is calm, cooperative, appropriate rg5 for age. Pain: Complains of pain in posterior aspect of left lateral abdomen Pain radiates to abdomen Pain currently is 9 out of 10 on a pain scale. Quality of pain is described as aching. Neuro: Level of Consciousness is awake, alert, obeys commands, Oriented to person, place, time. Cardiovascular: Capillary refill < 3 seconds Patient's skin is warm and dry. Respiratory: Airway is patent Trachea midline Respiratory effort is even, unlabored, Respiratory pattern is regular, symmetrical. GI: Abdomen is round Abd is soft Reports lower abdominal pain. : No signs and/or symptoms were reported regarding the genitourinary system. EENT: No deficits noted. Derm: Skin is intact, Skin is dry, Skin is normal, Skin temperature is warm. Musculoskeletal: Circulation, motion, and sensation intact. Range of motion: intact in all extremities. 08/12 00:35 Reassessment: Patient and/or family updated on plan of care and expected duration. Pain rg5 level reassessed. Patient is alert, oriented x 3, equal unlabored respirations, skin warm/dry/pink. 01:30 Reassessment: Patient and/or family updated on plan of care and expected duration. Pain rg5 level reassessed. Patient is alert, oriented x 3, equal unlabored respirations, skin warm/dry/pink. Vital Signs: 08/11 23:21 BP 115 / 77; Pulse 72; Resp 18; Temp 97.8; Pulse Ox 98% on R/A; Weight 89 kg; Height 5 cm10 ft. 5 in. ; Pain 07/09; 23:34 BP 115 / 77; Pulse 72; Resp 18; Temp 97.8(O); Pain 07/09; rg5 08/12 00:15 BP 108 / 61; Pulse 54; Resp 17; Pulse Ox 97% on R/A; rg5 01:46 BP 129 / 98; Pulse 64; Resp 17; Pulse Ox 100% ; rg5 02:21 BP 111 / 65; Pulse 64; Resp 18; Temp 98; Pulse Ox 97% on R/A; kj2 02:38 BP 113 / 66; Pulse 62; Resp 18; Temp 98; Pulse Ox 100% on R/A; kj2 08/11 23:21 Body Mass Index 32.65 (89.00 kg, 165.1 cm) cm10 08/11 23:21 Pain Scale: Adult cm10 23:34 Pain Scale: Adult rg5 [place] Coma Score: 08/11 23:36 Eye Response: spontaneous(4). Motor Response: obeys commands(6). Verbal Response: rg5 oriented(5). Total: 15. ED Course: 23:08 Patient arrived in ED. ra3 23:08 Radha Najera PA-C is PHCP. sb4 23:08 Humphrey Kim MD is Attending Physician. sb4 23:22 Triage completed. cm10 23:22 Arm band placed on Patient placed in an exam room, on a stretcher. cm10 23:29 Lizandro Wheeler, RN is Primary Nurse. rg5 23:36 Patient has correct armband on for positive identification. Bed in low position. Call rg5 light in reach. Side rails up X 1. Adult w/ patient. 23:36 No provider procedures requiring assistance completed. rg5 08/12 01:42 CT Abd/Pelvis - IV Contrast Only In Process Unspecified. EDMS 02:23 Provided Education on: med regimen. kj2 02:25 IV discontinued, intact, bleeding controlled, No redness/swelling at site. Pressure kj2 dressing applied. Administered Medications: 08/11 23:50 CANCELLED (Physician Discretion): ondansetron 4 mg IVP once; over 2 minutes sb4 08/12 00:00 Drug: morphine IVP or IV 4 mg IVP once over 4 mins Route: IVP; Infused Over: 4 mins; rg5 Site: right antecubital; 01:00 Follow up: Response: No adverse reaction; Pain is decreased rg5 00:00 Drug: NS 0.9% IV 1000 ml IV at 1 bolus Per protocol; to be given as a bolus over 60 rg5 minutes Route: IV; Rate: 1 bolus; Site: right antecubital; 02:08 Follow up: IV Status: Completed infusion; IV Intake: 1000ml rg5 00:01 Drug: Promethazine IVP 12.5 mg IVP once Route: IVP; Site: right antecubital; rg5 01:00 Follow up: Response: No adverse reaction rg5 02:29 Follow up: Response: No adverse reaction; Nausea is decreased kj2 Medication: 08/11 23:36 VIS not applicable for this client. rg5 Intake: 08/12 02:08 IV: 1000ml; Total: 1000ml. rg5 Outcome: 02:21 Discharge ordered by . josr 02:24 Discharged to home ambulatory, with family, kj2 02:24 Condition: stable 02:24 Discharge instructions given to patient, family, Instructed on discharge instructions, follow up and referral plans. medication usage, Demonstrated understanding of instructions, follow-up care, medications, Prescriptions given X 1, 02:42 Patient left the ED. kj2 Signatures: Dispatcher [employer] EDMS Humphrey Kim MD MD cha Brown, Sophia, PA-C PA-C sb4 Jennifer Lewis RN RN cm10 Flores Call ra3 Lizandro Wheeler RN RN rg5 Mildred Stahl, EMILY RN kj2 Corrections: (The following items were deleted from the chart) 08/11 23:23 23:21 BP 115 / 77; Pulse 72bpm; Resp 18bpm; Pulse Ox 98% RA; Temp 97.8F; 131.54 kg; cm10 Height 5 ft. 5 in.; BMI: 48.2; Pain 9/10, Adult; cm10
[2024-08-12 07:15] VITALS: TEMP 98
[2024-08-12 07:17] VITALS: BP 113/66; O2SAT 100
== END 2024-08-12 02:42 | disposition home or self-care (01) ==
LOC: ER 23:07
DX: M54.50 Low back pain, unspecified (principal); R10.32 Left lower quadrant pain; Z87.442 Personal history of urinary calculi; F17.210 Nicotine dependence, cigarettes, uncomplicated
CPT/HCPCS: 85025; 81001; 36415; 81025; 80053; 74177; Q9967; J2550; J7030